=== PATIENT | male | born 1960 | race Caucasian/White ===

== ENCOUNTER 2016-10-06 12:30 | Outpatient (CLI) ==
[2016-10-06 12:59] LABS: FLU INTERNAL QC INTERNAL QC VALID; RAPID FLU A NEGATIVE (NEGATIVE); RAPID FLU B NEGATIVE (NEGATIVE)
== END 2016-10-06 12:31 | disposition home or self-care (01) ==
LOC: LAB 12:30
PROVIDERS: ATTEND Nurse Practitioner Family
DX: J02.9 Acute pharyngitis, unspecified (principal); R05 Cough; R52 Pain, unspecified
CPT/HCPCS: 87651; 87804; 87880

== ENCOUNTER 2018-01-11 09:57 | Outpatient (CLI) | END 2018-01-11 09:58 | disposition home or self-care (01) | LOC: RHC-LAB 09:57 | PROVIDERS: ATTEND Nurse Practitioner Family | DX: Z00.00 Encounter for general adult medical examination without abnormal findings (principal); Z12.5 Encounter for screening for malignant neoplasm of prostate | CPT/HCPCS: 36415; 80053; 80061; 84443; 85025 ==

== ENCOUNTER 2018-08-31 12:39 | Outpatient (CLI) ==
[2018-08-31] MEDS: ALBUTEROL 0.083% NEB NEB STA (13:01)
== END 2018-08-31 12:40 | disposition home or self-care (01) ==
LOC: CAR 12:39
PROVIDERS: ATTEND Family Medicine
DX: R09.89 Other specified symptoms and signs involving the circulatory and respiratory systems (principal)
CPT/HCPCS: 94640